=== PATIENT | female | born 1995 | race Caucasian/White ===

== ENCOUNTER 2020-07-05 12:08 | Emergency (ER) | payer BC, OTHER, SELFPAY ==
[~2020-07-05] VITALS: Ht 182.9 cm; Wt 72.6 kg
[~2020-07-05 12:08] MED LIST: DESV50TA20 PO; PROP20TA6 PO
[2020-07-05 12:43] VITALS: BP 118/82
[2020-07-05 15:06] LABS: URINE HCG NEGATIVE (NEG)
[2020-07-05 15:07] LABS: CLARITY,URINE SLIGHTLY CLOUDY (Clear); COLOR,URINE YELLOW (Yellow); GLUCOSE, URINE NEGATIVE (Neg); KETONES,URINE NEGATIVE (Neg); LEUKOCYTE ESTERASE ,URINE TRACE (Neg); NITRITES, URINE NEGATIVE (Neg); OCCULT BLOOD,URINE NEGATIVE (Neg); PROTEIN,URINE NEGATIVE (Neg); UA COLLECTION TYPE CLN CATCH MIDSTREAM; UROBILINOGEN,URINE 0.2 E.U/dL (0.2-1.0)
[2020-07-05 15:13] LABS: SQUAMOUS EPITHELIAL CELL,UR MANY /LPF (FEW)
[2020-07-05 15:14] LABS: BACTERIA,URINE FEW /HPF (Neg); RBC,URINE 0-2 /HPF (0-2)
[2020-07-05 15:15] LABS: WBC,URINE 0-4 /HPF (0-4)
[2020-07-05] MEDS ORDERED: ketorolac trometh. 30mg/ml inj. IM ONE (16:45)
== END 2020-07-05 17:10 | disposition home or self-care (01) ==
LOC: ER 12:09
DX: S16.1XXA Strain of muscle, fascia and tendon at neck level, initial encounter (principal); S09.90XA Unspecified injury of head, initial encounter; M51.36 Other intervertebral disc degeneration, lumbar region; W07.XXXA Fall from chair, initial encounter; Y93.89 Activity, other specified; Y92.89 Other specified places as the place of occurrence of the external cause; Y99.8 Other external cause status
CPT/HCPCS: 70450; 72125; 72131; 81001; 81025; 87088; 96372; 99285; J1885